=== PATIENT | male | born 1965 | race African-American/Black ===

== ENCOUNTER 2019-05-31 07:15 | Inpatient (IN) | payer MEDICAID ==
[~2019-05-31] VITALS: Ht 185.4 cm; Wt 107.7 kg
[~2019-05-31 07:15] MED LIST: LURA40 PO; LURA80 PO
[2019-06-01] MEDS ORDERED: LORazepam 1 MG TABLET PO PRN (01:15)
[2019-06-01] MEDS ORDERED: ZOLPIDEM TARTRATE 10 MG TABLET PO PRN (01:15)
[2019-06-01] MEDS ORDERED: HALOPERIDOL 5 MG TABLET PO PRN (01:15)
[2019-06-01] MEDS ORDERED: INFLUENZA VIRUS VACCINE QVS 2019-20 (3YR+)/PF 60 MCG/0.5 ML SYRINGE IM ONE (02:45)
[2019-06-01] MEDS ORDERED: -PHARMACY VACCINE NOTE- MISC ONE (02:45)
[2019-06-01 02:50] VITALS: BP 125/71
[2019-06-01 08:31] VITALS: BP 123/74
[2019-06-01] MEDS ORDERED: NICOTINE 14 MG/24 HOUR PATCH TD PRN (13:45)
[2019-06-01] MEDS ORDERED: LOPERAMIDE HCL 2 MG CAPSULE PO PRN (13:45)
[2019-06-01] MEDS ORDERED: MAGNESIUM HYDROXIDE SUSPENSION 30 ML UDCUP PO PRN (13:45)
[2019-06-01] MEDS ORDERED: MAG HYDROX/AL HYDROX/SIMETH ES 30 ML SUSPENSION UDCUP PO PRN (13:45)
[2019-06-01] MEDS ORDERED: ACETAMINOPHEN 325 MG TABLET PO PRN (13:45)
[2019-06-01] MEDS ORDERED: DOCUSATE SODIUM 100 MG CAPSULE PO PRN (13:45)
[2019-06-01] MEDS ORDERED: PETROLATUM,WHITE 28 GM JELLY TP PRN (13:45)
[2019-06-01] MEDS ORDERED: ALBUTEROL SULFATE HFA 90 MCG/PUFF 8 GM INHALER IH PRN (13:45)
[2019-06-01] MEDS ORDERED: CloNIDine HCL 0.1 MG TABLET PO PRN (13:45)
[2019-06-01] MEDS ORDERED: ONDANSETRON HCL 4 MG TABLET PO PRN (13:45)
[2019-06-01] MEDS ORDERED: GuaiFENesin/D-METHORPHAN [SUGAR-FREE] 200-20MG/10 ML SYRUP UDCUP PO PRN (13:45)
[2019-06-01] MEDS ORDERED: IBUPROFEN 400 MG TABLET PO PRN (13:45)
[2019-06-01 16:07] VITALS: BP 132/72
[2019-06-01] MEDS: LURASIDONE HCL 40 MG TABLET PO SCH (17:08)
[2019-06-02 00:38] VITALS: BP 128/72
[2019-06-02] MEDS: LURASIDONE HCL 40 MG TABLET PO SCH ×2 (06:32→16:33)
[2019-06-02 08:25] VITALS: BP 129/66
[2019-06-02 16:20] VITALS: BP 135/68
[2019-06-03 02:14] VITALS: BP 127/71
[2019-06-03] MEDS: LURASIDONE HCL 40 MG TABLET PO SCH ×2 (06:21→17:04)
[2019-06-03 07:03] LABS: BASOPHILS % (AUTO) 0.3 % (0.0-2.0); EOSINOPHILS % (AUTO) 1.1 % (1.0-6.0); HEMATOCRIT 39.8 % (41-53); HEMOGLOBIN 13.5 g/dL (13.5-17.5); LYMPHOCYTES # (AUTO) 1.1 K/uL (1.0-4.8); LYMPHOCYTES % (AUTO) 22.7 % (22.0-44.0); MEAN CORPUSCULAR HEMOGLOBIN 28.8 pg (26.0-34.0); MEAN CORPUSCULAR HGB CONC 33.9 G/dL (31.0-37.0); MEAN CORPUSCULAR VOLUME 85 fL (80-100); MONOCYTES # (AUTO) 0.5 K/uL (0.1-1.0); MONOCYTES % (AUTO) 11.1 % (2.0-9.0); NEUTROPHILS # (AUTO) 3.1 K/uL (1.8-7.7); NEUTROPHILS % (AUTO) 64.8 % (40.0-70.0); PLATELET COUNT (AUTO) 162 K/uL (150-450); RED CELL DISTRIBUTION WIDTH 14.9 % (11.5-14.5)
[2019-06-03 07:32] LABS: HEMOGLOBIN A1C 5.7 % (4.5-6.2)
[2019-06-03 07:41] LABS: ALANINE AMINOTRANSFERASE 33 U/L (12-78); ALBUMIN 3.2 g/dL (3.4-5.0); ALKALINE PHOSPHATASE 53 U/L (46-116); ANION GAP 3 mmol/L (8-16); ASPARTATE AMINOTRANSFERASE 16 U/L (15-37); BILIRUBIN,TOTAL 0.4 mg/dL (0.1-1.0); CALCIUM, TOTAL 8.4 mg/dL (8.8-10.5); CARBON DIOXIDE 32 mmol/L (22-29); CHLORIDE 107 mmol/L (98-107); CHOL/HDL RATIO 3.4 (4.2-7.3); CHOLESTEROL 151 mg/dL (131-200); CREATININE 1.06 mg/dL (0.60-1.30); FREE T4 (FREE THYROXINE) 0.85 ng/dL (0.76-1.46); GLOMERULAR FILTR. RATE CALC > 60 mL/min (>60); GLUCOSE,RANDOM 87 mg/dL (70-110); HDL CHOLESTEROL 45 mg/dL (40-60); LDL CHOL (CALC.) 95 mg/dL (0-130); SODIUM SERUM 142 mmol/L (136-145); THYROID STIMULATING HORMONE 1.27 uIU/mL (0.36-3.74); TOTAL PROTEIN, SERUM 6.1 g/dL (6.4-8.2); TRIGLYCERIDES 54 mg/dL (15-150); UREA NITROGEN, BLOOD 14 mg/dL (7-18)
[2019-06-03 08:16] VITALS: BP 119/63
[2019-06-03 16:08] VITALS: BP 133/77
[2019-06-04 02:11] VITALS: BP 124/69
[2019-06-04] MEDS: LURASIDONE HCL 40 MG TABLET PO SCH ×2 (06:52→16:24)
[2019-06-04 08:11] VITALS: BP 122/67
[2019-06-04] MEDS ORDERED: LURA40 PO (13:03)
[2019-06-04 16:04] VITALS: BP 113/62
== END 2019-06-04 21:23 | disposition home or self-care (01) | DRG 750 ==
LOC: B3A 06-01 00:45 → B2S 06-01 14:08
PROVIDERS: ADMIT Psychiatry & Neurology Psychiatry; ATTEND Psychiatry & Neurology Psychiatry
DX: F25.0 Schizoaffective disorder, bipolar type (principal); Z59.0 Homelessness; E55.9 Vitamin D deficiency, unspecified; F17.200 Nicotine dependence, unspecified, uncomplicated; F41.9 Anxiety disorder, unspecified; J44.9 Chronic obstructive pulmonary disease, unspecified; K59.00 Constipation, unspecified; Z91.19 Patient's noncompliance with other medical treatment and regimen; Z28.21 Immunization not carried out because of patient refusal
CPT/HCPCS: 83036; 84439; 84443; Q0162

== ENCOUNTER 2019-06-05 19:23 | Emergency (ER) | payer MEDICAID ==
[~2019-06-05] VITALS: Ht 195.6 cm; Wt 108.6 kg
[~2019-06-05 19:23] MED LIST changes: -LURA80 PO
[2019-06-05] MEDS ORDERED: LURASIDONE HCL 40 MG TABLET PO ONE (20:15)
[2019-06-05 20:51] VITALS: BP 152/85
== END 2019-06-05 21:08 | disposition home or self-care (01) ==
LOC: EMS 19:24
DX: F20.9 Schizophrenia, unspecified (principal); F19.90 Other psychoactive substance use, unspecified, uncomplicated; Z76.0 Encounter for issue of repeat prescription; Z59.0 Homelessness

== ENCOUNTER 2021-01-09 23:29 | Emergency (ER) | payer MEDICAID ==
[~2021-01-09] VITALS: Ht 185.4 cm; Wt 104.5 kg
[~2021-01-09 23:29] MED LIST changes: -LURA40 PO; +LURA40TA2 PO
[2021-01-10 01:19] LABS: BASOPHILS % (AUTO) 0.5 % (0.0-2.0); EOSINOPHILS % (AUTO) 0.8 % (1.0-6.0); HEMATOCRIT 39.6 % (41-53); HEMOGLOBIN 13.1 g/dL (13.5-17.5); LYMPHOCYTES # (AUTO) 1.3 K/uL (1.0-4.8); LYMPHOCYTES % (AUTO) 21.9 % (22.0-44.0); MEAN CORPUSCULAR HEMOGLOBIN 28.6 pg (26.0-34.0); MEAN CORPUSCULAR VOLUME 87 fL (80-100); MONOCYTES # (AUTO) 0.7 K/uL (0.1-1.0); MONOCYTES % (AUTO) 12.5 % (2.0-9.0); NEUTROPHILS # (AUTO) 3.7 K/uL (1.8-7.7); NEUTROPHILS % (AUTO) 64.3 % (40.0-70.0); PLATELET COUNT (AUTO) 176 K/uL (150-450); RED BLOOD CELL COUNT(AUTO) 4.57 MIL/uL (4.50-5.90)
[2021-01-10 01:27] LABS: ANION GAP 6 mmol/L (8-16); CARBON DIOXIDE 30 mmol/L (22-29); CHLORIDE 107 mmol/L (98-107); CREATININE 1.02 mg/dL (0.60-1.30); GLOMERULAR FILTR. RATE CALC > 60 mL/min (>60); GLUCOSE,RANDOM 97 mg/dL (70-110); POTASSIUM 3.7 mmol/L (3.5-5.1); SODIUM SERUM 143 mmol/L (136-145); UREA NITROGEN, BLOOD 11 mg/dL (7-18)
[2021-01-10 01:33] LABS: ALANINE AMINOTRANSFERASE 33 U/L (12-78); ALBUMIN 3.6 g/dL (3.4-5.0); ALKALINE PHOSPHATASE 75 U/L (46-116); ASPARTATE AMINOTRANSFERASE 29 U/L (15-37); BILIRUBIN,TOTAL 0.5 mg/dL (0.1-1.0); TOTAL PROTEIN, SERUM 6.9 g/dL (6.4-8.2)
[2021-01-10] MEDS ORDERED: LURASIDONE HCL 60 MG TABLET PO ONE (03:30)
[2021-01-10 03:56] VITALS: BP 140/80
== END 2021-01-10 03:57 | disposition home or self-care (01) ==
LOC: EMS 23:31
DX: F20.0 Paranoid schizophrenia (principal); F15.90 Other stimulant use, unspecified, uncomplicated; Z59.0 Homelessness
CPT/HCPCS: 36415; 80053; 85025; 99283; A9575; G0480

== ENCOUNTER 2021-01-11 07:07 | Emergency (ER) | payer MEDICAID ==
[~2021-01-11] VITALS: Ht 188 cm; Wt 100.0 kg
[2021-01-11] MEDS ORDERED: BISMUTH SUBSALICYLATE 524 MG/30 ML SUSPENSION UDCUP PO ONE (12:15)
[2021-01-11 13:30] VITALS: BP 133/76
== END 2021-01-11 14:04 | disposition home or self-care (01) ==
LOC: EMS 07:07
DX: F20.9 Schizophrenia, unspecified (principal); F15.10 Other stimulant abuse, uncomplicated; F17.210 Nicotine dependence, cigarettes, uncomplicated; Z59.0 Homelessness; Z91.018 Allergy to other foods
CPT/HCPCS: 99284; Z7502; Z7610

== ENCOUNTER 2021-10-03 13:37 | Emergency (ER) | payer MEDICAID ==
[~2021-10-03] VITALS: Ht 188 cm; Wt 99.7 kg
[2021-10-03] MEDS ORDERED: LIDOCAINE 5% TRANSDERMAL PATCH TD ONE (14:15)
[2021-10-03] MEDS ORDERED: ACETAMINOPHEN 500 MG TABLET PO ONE (14:15)
[2021-10-03 17:04] VITALS: BP 120/72
== END 2021-10-03 17:18 | disposition home or self-care (01) ==
LOC: EMS 13:40
DX: S29.012A Strain of muscle and tendon of back wall of thorax, initial encounter (principal); F15.90 Other stimulant use, unspecified, uncomplicated; F17.210 Nicotine dependence, cigarettes, uncomplicated; Z91.018 Allergy to other foods; Z79.899 Other long term (current) drug therapy; X50.9XXA Other and unspecified overexertion or strenuous movements or postures, initial encounter; Y93.89 Activity, other specified; Y92.89 Other specified places as the place of occurrence of the external cause; Y99.8 Other external cause status
CPT/HCPCS: 99283

== ENCOUNTER 2022-01-15 20:41 | Emergency (ER) | payer MEDICAID ==
[~2022-01-15] VITALS: Ht 188 cm; Wt 81.8 kg
[2022-01-15 21:06] VITALS: BP 132/58
[2022-01-15 22:44] LABS: BASOPHILS % (AUTO) 0.5 % (0.0-2.0); EOSINOPHILS % (AUTO) 1.5 % (1.0-6.0); HEMATOCRIT 36.6 % (41-53); HEMOGLOBIN 11.9 g/dL (13.5-17.5); LYMPHOCYTES # (AUTO) 1.2 K/uL (1.0-4.8); MEAN CORPUSCULAR HEMOGLOBIN 26.7 pg (26.0-34.0); MEAN CORPUSCULAR HGB CONC 32.7 G/dL (31.0-37.0); MEAN CORPUSCULAR VOLUME 82 fL (80-100); MONOCYTES # (AUTO) 0.6 K/uL (0.1-1.0); MONOCYTES % (AUTO) 12.4 % (2.0-9.0); NEUTROPHILS # (AUTO) 3.1 K/uL (1.8-7.7); NEUTROPHILS % (AUTO) 61.6 % (40.0-70.0); PLATELET COUNT (AUTO) 212 K/uL (150-450); RED BLOOD CELL COUNT(AUTO) 4.48 MIL/uL (4.50-5.90); RED CELL DISTRIBUTION WIDTH 16.2 % (11.5-14.5)
[2022-01-15 22:52] LABS: ANION GAP 7 mmol/L (8-16); CALCIUM, TOTAL 9.4 mg/dL (8.8-10.5); CARBON DIOXIDE 31 mmol/L (22-29); CHLORIDE 104 mmol/L (98-107); CREATININE 1.34 mg/dL (0.60-1.30); GLUCOSE,RANDOM 92 mg/dL (70-110); POTASSIUM 4.3 mmol/L (3.5-5.1); SODIUM SERUM 142 mmol/L (136-145); UREA NITROGEN, BLOOD 22 mg/dL (7-18)
[2022-01-15 22:53] LABS: GLOMERULAR FILTR. RATE CALC > 60 mL/min (>60)
[2022-01-15 22:58] LABS: ALANINE AMINOTRANSFERASE 26 U/L (12-78); ALBUMIN 3.4 g/dL (3.4-5.0); ALKALINE PHOSPHATASE 78 U/L (46-116); ASPARTATE AMINOTRANSFERASE 23 U/L (15-37); BILIRUBIN,TOTAL 0.4 mg/dL (0.1-1.0); TOTAL PROTEIN, SERUM 7.3 g/dL (6.4-8.2)
== END 2022-01-16 04:32 | disposition home or self-care (01) ==
LOC: EMS 20:59
DX: R60.0 Localized edema (principal); F20.0 Paranoid schizophrenia; F17.210 Nicotine dependence, cigarettes, uncomplicated; F15.90 Other stimulant use, unspecified, uncomplicated; Z59.00 Homelessness unspecified; Z98.890 Other specified postprocedural states; Z91.018 Allergy to other foods
CPT/HCPCS: 80053; 85025; 99284

== ENCOUNTER 2022-01-21 21:17 | Emergency (ER) | payer MEDICAID ==
[~2022-01-21] VITALS: Ht 190.5 cm; Wt 81.8 kg
[2022-01-21 21:19] VITALS: BP 118/58
[2022-01-22] MEDS ORDERED: CEPH-558 PO (02:25)
== END 2022-01-22 03:25 | disposition home or self-care (01) ==
LOC: EMS 21:20
DX: L03.115 Cellulitis of right lower limb (principal); F20.9 Schizophrenia, unspecified; F17.210 Nicotine dependence, cigarettes, uncomplicated; F15.90 Other stimulant use, unspecified, uncomplicated; Z98.890 Other specified postprocedural states; Z59.00 Homelessness unspecified; Z91.018 Allergy to other foods
CPT/HCPCS: 85379; 93971; 99284

== ENCOUNTER 2023-05-04 00:03 | Emergency (ER) | payer MEDICAID ==
[~2023-05-04] VITALS: Ht 188 cm; Wt 98.6 kg
[~2023-05-04 00:03] MED LIST changes: +CEPH-558 PO
[2023-05-04 00:34] VITALS: TEMP 98.6
[2023-05-04 00:39] LABS: BASOPHILS % (AUTO) 0.7 % (0.0-2.0); EOSINOPHILS % (AUTO) 1.7 % (1.0-6.0); HEMATOCRIT 35.6 % (41-53); HEMOGLOBIN 11.6 g/dL (13.5-17.5); LYMPHOCYTES # (AUTO) 1.7 K/uL (1.0-4.8); LYMPHOCYTES % (AUTO) 31.4 % (22.0-44.0); MEAN CORPUSCULAR HEMOGLOBIN 27.4 pg (26.0-34.0); MEAN CORPUSCULAR HGB CONC 32.7 G/dL (31.0-37.0); MEAN CORPUSCULAR VOLUME 84 fL (80-100); MONOCYTES # (AUTO) 0.9 K/uL (0.1-1.0); MONOCYTES % (AUTO) 15.8 % (2.0-9.0); NEUTROPHILS # (AUTO) 2.8 K/uL (1.8-7.7); NEUTROPHILS % (AUTO) 50.4 % (40.0-70.0); PLATELET COUNT (AUTO) 235 K/uL (150-450); RED BLOOD CELL COUNT(AUTO) 4.25 MIL/uL (4.50-5.90); RED CELL DISTRIBUTION WIDTH 15.2 % (11.5-14.5); WHITE BLOOD COUNT (AUTO) 5.5 K/uL (4.5-11.0)
[2023-05-04 00:49] LABS: ANION GAP 6 mmol/L (8-16); CALCIUM, TOTAL 9.4 mg/dL (8.8-10.5); CARBON DIOXIDE 28 mmol/L (22-29); CHLORIDE 106 mmol/L (98-107); CREATININE 1.08 mg/dL (0.60-1.30); GLOMERULAR FILTR. RATE CALC > 60 mL/min (>60); GLUCOSE,RANDOM 109 mg/dL (70-110); POTASSIUM 4.8 mmol/L (3.5-5.1); SODIUM SERUM 140 mmol/L (136-145); UREA NITROGEN, BLOOD 29 mg/dL (7-18)
[2023-05-04 00:54] LABS: PROTHROMBIN TIME 10.4 SEC (9.4-11.6)
[2023-05-04 00:57] LABS: TROPONIN I-HIGH SENSITIVITY 12 ng/L (<76)
[2023-05-04 00:59] LABS: ALANINE AMINOTRANSFERASE 19 U/L (12-78); ALBUMIN 2.9 g/dL (3.4-5.0); ALKALINE PHOSPHATASE 96 U/L (46-116); ASPARTATE AMINOTRANSFERASE 14 U/L (15-37); BILIRUBIN,TOTAL 0.2 mg/dL (0.1-1.0); CREATINE KINASE, TOTAL ONLY 109 U/L (39-308); TOTAL PROTEIN, SERUM 6.9 g/dL (6.4-8.2)
[2023-05-04 01:02] LABS: B-TYPE NATRIURETIC PEPTIDE 20 pg/mL (0-100)
[2023-05-04 03:25] LABS: APPEARANCE,URINE CLEAR (CLEAR); BILIRUBIN,URINE NEGATIVE (NEGATIVE); COLOR,URINE COLORLESS (YELLOW); GLUCOSE, URINE (UA) NEGATIVE (NEGATIVE); KETONES,URINE NEGATIVE (NEGATIVE); LEUKOCYTE ESTERASE ,URINE NEGATIVE (NEGATIVE); NITRATE,URINE NEGATIVE (NEGATIVE); OCCULT BLOOD,URINE NEGATIVE (NEGATIVE); PROTEIN,URINE NEGATIVE (NEGATIVE); SPECIFIC GRAVITIY, URINE 1.013 (1.003-1.030); UROBILINOGEN,URINE <=1.0 mg/dL (<=1.0)
[2023-05-04] MEDS ORDERED: CLINDAMYCIN 600 MG/D5% WATER 50 ML IV ONE (03:30)
[2023-05-04 03:50] LABS: ALCOHOL, URINE DRUG SCREEN NEGATIVE (NEGATIVE); AMPHET/METH SCREEN,URINE NEGATIVE (NEGATIVE); BARBITURATE SCREEN, URINE NEGATIVE (NEGATIVE); BENZODIAZEPINES SCREEN,URINE NEGATIVE (NEGATIVE); CANNABINOID SCREEN,URINE NEGATIVE (NEGATIVE); COCAINE SCREEN,URINE NEGATIVE (NEGATIVE); METHADONE SCREEN, URINE NEGATIVE (NEGATIVE); OPIATE SCREEN,URINE NEGATIVE (NEGATIVE); PHENCYCLIDINE SCREEN,URINE NEGATIVE (NEGATIVE)
[2023-05-04] MEDS ORDERED: CLIN-142 PO (03:56)
[2023-05-04 04:06] VITALS: BP 103/69; PULSE 73; RESP 22
== END 2023-05-04 04:06 | disposition short-term general hospital (02) ==
LOC: EMS 00:04
DX: L03.115 Cellulitis of right lower limb (principal); F20.9 Schizophrenia, unspecified; F17.210 Nicotine dependence, cigarettes, uncomplicated; F15.90 Other stimulant use, unspecified, uncomplicated; Z59.00 Homelessness unspecified
CPT/HCPCS: 99285; 93970; 96365; 71045; 80053; 81003; 82550; 83605; 83880; 84484; 85025; 85610; 85730; 87040; 36415; 93005; 80307; J3490

== ENCOUNTER 2023-05-13 10:38 | Emergency (ER) | payer MEDICAID ==
[~2023-05-13] VITALS: Ht 188 cm; Wt 98.6 kg
[~2023-05-13 10:38] MED LIST changes: +CLIN-142 PO
[2023-05-13 10:58] VITALS: TEMP 98
[2023-05-13 12:22] LABS: BASOPHILS % (AUTO) 0.9 % (0.0-2.0); EOSINOPHILS % (AUTO) 2.5 % (1.0-6.0); LYMPHOCYTES # (AUTO) 1.8 K/uL (1.0-4.8); LYMPHOCYTES % (AUTO) 34.1 % (22.0-44.0); MEAN CORPUSCULAR HEMOGLOBIN 27.7 pg (26.0-34.0); MEAN CORPUSCULAR HGB CONC 33.3 G/dL (31.0-37.0); MEAN CORPUSCULAR VOLUME 83 fL (80-100); MONOCYTES # (AUTO) 0.6 K/uL (0.1-1.0); MONOCYTES % (AUTO) 12.1 % (2.0-9.0); NEUTROPHILS # (AUTO) 2.7 K/uL (1.8-7.7); NEUTROPHILS % (AUTO) 50.4 % (40.0-70.0); PLATELET COUNT (AUTO) 221 K/uL (150-450); RED BLOOD CELL COUNT(AUTO) 4.68 MIL/uL (4.50-5.90); RED CELL DISTRIBUTION WIDTH 14.9 % (11.5-14.5); WHITE BLOOD COUNT (AUTO) 5.3 K/uL (4.5-11.0)
[2023-05-13 12:34] LABS: ANION GAP 7 mmol/L (8-16); CALCIUM, TOTAL 8.8 mg/dL (8.8-10.5); CARBON DIOXIDE 30 mmol/L (22-29); CHLORIDE 102 mmol/L (98-107); CREATININE 1.19 mg/dL (0.60-1.30); GLOMERULAR FILTR. RATE CALC > 60 mL/min (>60); GLUCOSE,RANDOM 123 mg/dL (70-110); POTASSIUM 4.6 mmol/L (3.5-5.1); SODIUM SERUM 139 mmol/L (136-145); UREA NITROGEN, BLOOD 18 mg/dL (7-18)
[2023-05-13 12:35] LABS: ALCOHOL, BLOOD (SERUM) < 3 mg/dL (0-10)
[2023-05-13 12:40] LABS: ALANINE AMINOTRANSFERASE 21 U/L (12-78); ALBUMIN 3.4 g/dL (3.4-5.0); ALKALINE PHOSPHATASE 81 U/L (46-116); ASPARTATE AMINOTRANSFERASE 23 U/L (15-37); BILIRUBIN,TOTAL 0.5 mg/dL (0.1-1.0); TOTAL PROTEIN, SERUM 7.5 g/dL (6.4-8.2)
[2023-05-13 12:42] LABS: TROPONIN I-HIGH SENSITIVITY 5 ng/L (<76)
[2023-05-13 13:00] LABS: COVID AG,FIA SOURCE NASAL SWAB
[2023-05-13 13:28] VITALS: BP 131/82; PULSE 64; RESP 16
[2023-05-13 13:47] LABS: SARS-COV2 (COVID) ANTIGEN,FIA Negative (Negative)
[2023-05-13] MEDS ORDERED: LURA60TA PO (19:27)
== END 2023-05-13 14:29 | disposition home or self-care (01) ==
LOC: EMS 10:38
DX: I87.2 Venous insufficiency (chronic) (peripheral) (principal); F20.0 Paranoid schizophrenia; F15.10 Other stimulant abuse, uncomplicated; F17.210 Nicotine dependence, cigarettes, uncomplicated; Z59.00 Homelessness unspecified; Z98.890 Other specified postprocedural states; Z20.822 Contact with and (suspected) exposure to COVID-19; Z91.018 Allergy to other foods
CPT/HCPCS: 99283; 87426; 80053; 84484; 85025; 36415; G0480

== ENCOUNTER 2023-06-04 00:19 | Emergency (ER) | payer MEDICAID ==
[~2023-06-04] VITALS: Ht 185.4 cm; Wt 95.0 kg
[~2023-06-04 00:19] MED LIST changes: -CEPH-558 PO; -CLIN-142 PO; +CLIN300C58 PO; +ESCI-8 PO; -LURA40TA2 PO
[2023-06-04 01:56] LABS: BASOPHILS % (AUTO) 0.5 % (0.0-2.0); EOSINOPHILS % (AUTO) 1.4 % (1.0-6.0); HEMATOCRIT 37.8 % (41-53); HEMOGLOBIN 12.8 g/dL (13.5-17.5); LYMPHOCYTES # (AUTO) 1.7 K/uL (1.0-4.8); LYMPHOCYTES % (AUTO) 30.9 % (22.0-44.0); MEAN CORPUSCULAR HGB CONC 33.7 G/dL (31.0-37.0); MEAN CORPUSCULAR VOLUME 83 fL (80-100); MONOCYTES # (AUTO) 0.7 K/uL (0.1-1.0); MONOCYTES % (AUTO) 11.9 % (2.0-9.0); NEUTROPHILS # (AUTO) 3.1 K/uL (1.8-7.7); NEUTROPHILS % (AUTO) 55.3 % (40.0-70.0); PLATELET COUNT (AUTO) 216 K/uL (150-450); RED BLOOD CELL COUNT(AUTO) 4.56 MIL/uL (4.50-5.90); RED CELL DISTRIBUTION WIDTH 16.2 % (11.5-14.5); WHITE BLOOD COUNT (AUTO) 5.6 K/uL (4.5-11.0)
[2023-06-04] MEDS ORDERED: LIDOCAINE/PF 1% 2 ML VIAL IM ONE (02:00)
[2023-06-04] MEDS ORDERED: SULFAMETHOX/TRIMETH DS 800-160 MG/TABLET PO ONE (02:00)
[2023-06-04] MEDS ORDERED: CefTRIAXone SODIUM 1 GM/VIAL IM ONE (02:00)
[2023-06-04 02:01] LABS: ANION GAP 6 mmol/L (8-16); CARBON DIOXIDE 31 mmol/L (22-29); CHLORIDE 102 mmol/L (98-107); CREATININE 1.09 mg/dL (0.60-1.30); GLOMERULAR FILTR. RATE CALC > 60 mL/min (>60); GLUCOSE,RANDOM 105 mg/dL (70-110); POTASSIUM 3.8 mmol/L (3.5-5.1); SODIUM SERUM 139 mmol/L (136-145); UREA NITROGEN, BLOOD 15 mg/dL (7-18)
[2023-06-04 02:02] LABS: CALCIUM, TOTAL 9.2 mg/dL (8.8-10.5)
[2023-06-04 02:08] LABS: ALANINE AMINOTRANSFERASE 32 U/L (12-78); ALBUMIN 3.7 g/dL (3.4-5.0); ALKALINE PHOSPHATASE 75 U/L (46-116); ASPARTATE AMINOTRANSFERASE 26 U/L (15-37); BILIRUBIN,TOTAL 0.8 mg/dL (0.1-1.0); TOTAL PROTEIN, SERUM 7.8 g/dL (6.4-8.2)
[2023-06-04 02:19] VITALS: BP 134/82; PULSE 78; RESP 20; TEMP 97.8
== END 2023-06-04 06:10 | disposition home or self-care (01) ==
LOC: EMS 00:20
DX: L03.115 Cellulitis of right lower limb (principal); I87.2 Venous insufficiency (chronic) (peripheral); F20.9 Schizophrenia, unspecified; F17.210 Nicotine dependence, cigarettes, uncomplicated; F15.90 Other stimulant use, unspecified, uncomplicated; Z59.00 Homelessness unspecified; Z98.890 Other specified postprocedural states; Z91.018 Allergy to other foods
CPT/HCPCS: 99283; 80053; 85025; 36415; 96372; J0696; J3490

== ENCOUNTER 2024-11-29 17:47 | Emergency (ER) | payer MEDICAID ==
[~2024-11-29] VITALS: Ht 190.5 cm; Wt 108.6 kg
[~2024-11-29 17:47] MED LIST changes: -CLIN300C58 PO; -ESCI-8 PO; +LEVO-72 PO
[2024-11-29 18:02] VITALS: BP 153/65; PULSE 91; RESP 18; TEMP 97.9; O2SAT 100
[2024-11-29] MEDS ORDERED: ATOR40TA71 PO (18:03)
[2024-11-29] MEDS ORDERED: LURA120T2 PO (18:03)
[2024-11-29 18:06] LABS: COVID AG,FIA SOURCE NASAL SWAB
[2024-11-29 18:25] LABS: SARS-COV2 (COVID) ANTIGEN,FIA Negative (Negative)
[2024-11-29 18:32] LABS: INFLUENZA TYPE A NEGATIVE FOR TYPE A (NEGATIVE); INFLUENZA TYPE B NEGATIVE FOR TYPE B (NEGATIVE)
== END 2024-11-29 19:12 | disposition home or self-care (01) ==
LOC: EMS 18:05
DX: Z00.00 Encounter for general adult medical examination without abnormal findings (principal); F17.210 Nicotine dependence, cigarettes, uncomplicated; Z91.010 Allergy to peanuts; Z59.00 Homelessness unspecified; Z79.899 Other long term (current) drug therapy; Z20.822 Contact with and (suspected) exposure to COVID-19
CPT/HCPCS: 87804; 99283

== ENCOUNTER 2024-11-30 20:19 | Emergency (ER) | payer MEDICAID ==
[~2024-11-30] VITALS: Ht 188 cm; Wt 108.0 kg
[~2024-11-30 20:19] MED LIST changes: +ATOR40TA71 PO; +LURA120T2 PO
[2024-11-30 20:30] VITALS: BP 138/72; PULSE 78; RESP 18; TEMP 98; O2SAT 98
[2024-12-02] MEDS ORDERED: GUAI100L96 PO (18:25)
== END 2024-12-01 02:16 | disposition home or self-care (01) ==
LOC: EMS 20:19
DX: Z00.00 Encounter for general adult medical examination without abnormal findings (principal); Z59.00 Homelessness unspecified; Z91.010 Allergy to peanuts; Z79.899 Other long term (current) drug therapy
CPT/HCPCS: 99281; Z7502

== ENCOUNTER 2024-12-02 16:01 | Emergency (ER) | payer MEDICAID ==
[~2024-12-02] VITALS: Ht 190.5 cm; Wt 116.4 kg
[~2024-12-02 16:01] MED LIST changes: -LEVO-72 PO
[2024-12-02 16:04] VITALS: TEMP 99
[2024-12-02] MEDS: ACETAMINOPHEN 500 MG TABLET PO ONE (17:21)
[2024-12-02] MEDS: IBUPROFEN 400 MG TABLET PO ONE (17:21)
[2024-12-02 18:20] VITALS: BP 116/61; PULSE 87; RESP 16; O2SAT 95
[2024-12-02] MEDS ORDERED: GUAI100L96 PO (18:25)
== END 2024-12-02 20:15 | disposition home or self-care (01) ==
LOC: EMS 16:01
DX: M79.605 Pain in left leg (principal); M79.604 Pain in right leg; G89.29 Other chronic pain; Z71.6 Tobacco abuse counseling; F17.210 Nicotine dependence, cigarettes, uncomplicated; Z59.00 Homelessness unspecified; Z72.89 Other problems related to lifestyle; Z79.899 Other long term (current) drug therapy; Z98.890 Other specified postprocedural states; Z91.018 Allergy to other foods
CPT/HCPCS: 99283; 99406

== ENCOUNTER 2024-12-09 18:47 | Emergency (ER) | payer MEDICAID ==
[~2024-12-09] VITALS: Ht 190.5 cm; Wt 108.6 kg
[~2024-12-09 18:47] MED LIST changes: +GUAI100L96 PO
[2024-12-09 19:01] VITALS: TEMP 98.4
[2024-12-09 21:17] VITALS: BP 113/75; PULSE 77; RESP 18; O2SAT 96
[2024-12-09] MEDS ORDERED: LURA40TA2 PO (21:47)
[2024-12-10] MEDS ORDERED: AZIT250T9 PO (13:58)
== END 2024-12-09 22:02 | disposition home or self-care (01) ==
LOC: EMS 18:52
DX: R60.0 Localized edema (principal); F20.0 Paranoid schizophrenia; F17.210 Nicotine dependence, cigarettes, uncomplicated; Z98.890 Other specified postprocedural states; Z59.00 Homelessness unspecified; Z79.899 Other long term (current) drug therapy
CPT/HCPCS: 99283; Z7502

== ENCOUNTER 2024-12-14 20:42 | Emergency (ER) | payer MEDICAID ==
[~2024-12-14] VITALS: Ht 190.5 cm; Wt 120.0 kg
[~2024-12-14 20:42] MED LIST changes: +AZIT250T9 PO; +LURA40TA2 PO
[2024-12-14 20:55] VITALS: BP 155/74; PULSE 85; RESP 18; TEMP 98.2; O2SAT 97
== END 2024-12-15 | disposition home or self-care (01) ==
LOC: EMS 20:42
DX: F20.9 Schizophrenia, unspecified (principal); Z59.00 Homelessness unspecified; F17.210 Nicotine dependence, cigarettes, uncomplicated; Z91.010 Allergy to peanuts; Z79.899 Other long term (current) drug therapy
CPT/HCPCS: 99281; Z7502

== ENCOUNTER 2024-12-17 20:50 | Emergency (ER) | payer MEDICAID ==
[~2024-12-17] VITALS: Ht 190.5 cm; Wt 120.9 kg
[~2024-12-17 20:50] MED LIST changes: -AZIT250T9 PO
[2024-12-17 20:57] VITALS: TEMP 98.1
[2024-12-18 02:32] LABS: BASOPHILS % (AUTO) 0.5 % (0.0-2.0); HEMATOCRIT 36.1 % (41-53); LYMPHOCYTES # (AUTO) 0.9 K/uL (1.0-4.8); LYMPHOCYTES % (AUTO) 20.8 % (22.0-44.0); MEAN CORPUSCULAR HEMOGLOBIN 27.6 pg (26.0-34.0); MEAN CORPUSCULAR HGB CONC 33.1 G/dL (31.0-37.0); MEAN CORPUSCULAR VOLUME 83 fL (80-100); MONOCYTES # (AUTO) 0.6 K/uL (0.1-1.0); MONOCYTES % (AUTO) 13.9 % (2.0-9.0); NEUTROPHILS # (AUTO) 2.7 K/uL (1.8-7.7); NEUTROPHILS % (AUTO) 62.8 % (40.0-70.0); PLATELET COUNT (AUTO) 184 K/uL (150-450); RED BLOOD CELL COUNT(AUTO) 4.33 MIL/uL (4.50-5.90); RED CELL DISTRIBUTION WIDTH 16.1 % (11.5-14.5); WHITE BLOOD COUNT (AUTO) 4.3 K/uL (4.5-11.0)
[2024-12-18 02:46] LABS: ANION GAP 7 mmol/L (8-16); CALCIUM, TOTAL 8.8 mg/dL (8.8-10.5); CARBON DIOXIDE 32 mmol/L (22-29); CHLORIDE 103 mmol/L (98-107); CREATININE 1.12 mg/dL (0.60-1.30); GLOMERULAR FILTR. RATE CALC > 60 mL/min (>60); GLUCOSE,RANDOM 137 mg/dL (70-110); POTASSIUM 4.1 mmol/L (3.5-5.1); SODIUM SERUM 142 mmol/L (136-145); UREA NITROGEN, BLOOD 18 mg/dL (7-18)
[2024-12-18 07:30] VITALS: BP 116/58; PULSE 75; RESP 15; O2SAT 98
== END 2024-12-18 09:50 | disposition home or self-care (01) ==
LOC: EMS 20:50
DX: D64.9 Anemia, unspecified (principal); G89.29 Other chronic pain; F17.290 Nicotine dependence, other tobacco product, uncomplicated; Z59.811 Housing instability, housed, with risk of homelessness; Z59.00 Homelessness unspecified; Z98.890 Other specified postprocedural states; Z79.899 Other long term (current) drug therapy; Z91.010 Allergy to peanuts; Z91.018 Allergy to other foods
CPT/HCPCS: 80048; 85025; 99283

== ENCOUNTER 2024-12-22 21:16 | Emergency (ER) | payer MEDICAID ==
[~2024-12-22] VITALS: Ht 190.5 cm; Wt 56.8 kg
[2024-12-22 21:18] VITALS: BP 130/32; PULSE 93; RESP 16; TEMP 98.3; O2SAT 95
== END 2024-12-23 04:48 | disposition left against medical advice (07) ==
LOC: EMS 21:16
DX: M79.604 Pain in right leg (principal); M79.605 Pain in left leg; Z53.21 Procedure and treatment not carried out due to patient leaving prior to being seen by health care provider
CPT/HCPCS: 99281; Z7502

== ENCOUNTER → 2024-12-24 | Emergency (ER) | payer MEDICAID ==
[~2024-12-24] VITALS: Ht 190.5 cm; Wt 113.0 kg
[2024-12-24 18:06] VITALS: BP 140/78; PULSE 84; RESP 18; TEMP 97.6; O2SAT 96
== END | disposition still patient (30) ==
LOC: EMS 17:10
DX: Z00.00 Encounter for general adult medical examination without abnormal findings (principal); Z53.21 Procedure and treatment not carried out due to patient leaving prior to being seen by health care provider
CPT/HCPCS: 99281; Z7502

== ENCOUNTER → 2024-12-25 | Emergency (ER) | payer MEDICAID ==
[~2024-12-25] VITALS: Ht 190.5 cm; Wt 118.1 kg
[2024-12-25 08:11] VITALS: BP 141/68; PULSE 70; RESP 18; TEMP 96.9; O2SAT 96
== END | disposition still patient (30) ==
LOC: EMS 08:06
DX: J06.9 Acute upper respiratory infection, unspecified (principal); G89.29 Other chronic pain; F17.210 Nicotine dependence, cigarettes, uncomplicated; Z98.890 Other specified postprocedural states; Z59.00 Homelessness unspecified; Z79.899 Other long term (current) drug therapy; Z91.010 Allergy to peanuts; Z91.018 Allergy to other foods
CPT/HCPCS: 99282; Z7502

== ENCOUNTER 2025-03-19 07:08 | Emergency (ER) | payer MEDICAID ==
[~2025-03-19] VITALS: Ht 190.5 cm; Wt 126.5 kg
[2025-03-19 07:09] VITALS: BP 132/78; PULSE 80; RESP 18; TEMP 97.3; O2SAT 97
[2025-03-19] MEDS: POVIDONE-IODINE 10% 15 ML SOLUTION UD TP ONE (08:03)
== END 2025-03-19 08:48 | disposition home or self-care (01) ==
LOC: EMS 07:13
DX: S91.205A Unspecified open wound of left lesser toe(s) with damage to nail, initial encounter (principal); S91.204A Unspecified open wound of right lesser toe(s) with damage to nail, initial encounter; F17.210 Nicotine dependence, cigarettes, uncomplicated; G89.29 Other chronic pain; Z59.00 Homelessness unspecified; Z91.018 Allergy to other foods; X58.XXXA Exposure to other specified factors, initial encounter; Y93.89 Activity, other specified; Y92.89 Other specified places as the place of occurrence of the external cause; Y99.8 Other external cause status
CPT/HCPCS: 99282; A4247

== ENCOUNTER 2025-03-19 14:54 | Emergency (ER) | payer MEDICAID ==
[~2025-03-19] VITALS: Ht 190.5 cm; Wt 126.5 kg
[2025-03-19 15:31] VITALS: BP 112/76; PULSE 76; RESP 18; TEMP 98.2; O2SAT 98
== END 2025-03-19 18:19 | disposition home or self-care (01) ==
LOC: EMS 14:54
DX: S91.204A Unspecified open wound of right lesser toe(s) with damage to nail, initial encounter (principal); F17.210 Nicotine dependence, cigarettes, uncomplicated; Z98.890 Other specified postprocedural states; G89.29 Other chronic pain; Z59.00 Homelessness unspecified; Z91.018 Allergy to other foods; X58.XXXA Exposure to other specified factors, initial encounter; Y93.89 Activity, other specified; Y92.89 Other specified places as the place of occurrence of the external cause; Y99.8 Other external cause status
CPT/HCPCS: 99282; Z7502

== ENCOUNTER 2025-03-21 08:32 | Emergency (ER) | payer MEDICAID ==
[~2025-03-21] VITALS: Ht 190.5 cm; Wt 126.5 kg
[2025-03-21 08:58] VITALS: BP 130/74; PULSE 77; RESP 18; TEMP 98.2; O2SAT 97
== END 2025-03-21 12:04 | disposition home or self-care (01) ==
LOC: EMS 08:35
DX: I87.2 Venous insufficiency (chronic) (peripheral) (principal); F20.9 Schizophrenia, unspecified; F17.210 Nicotine dependence, cigarettes, uncomplicated; Z91.018 Allergy to other foods; Z59.00 Homelessness unspecified
CPT/HCPCS: 99282; Z7502

== ENCOUNTER 2025-04-07 08:14 | Emergency (ER) | payer MEDICAID ==
[~2025-04-07] VITALS: Ht 190.5 cm; Wt 124.0 kg
[~2025-04-07 08:14] MED LIST changes: -ATOR40TA71 PO; -GUAI100L96 PO; -LURA120T2 PO; -LURA40TA2 PO; +[UNRECOGNIZED DRUG - CODE] TP
[2025-04-07 08:25] VITALS: TEMP 98.1
[2025-04-07] MEDS: FUROSEMIDE 20 MG TABLET PO ONE (12:51)
[2025-04-07] MEDS: KETOROLAC TROMETHAMINE 60 MG/2 ML VIAL IM ONE (12:52)
[2025-04-07 13:05] VITALS: BP 149/67; PULSE 81; RESP 18; O2SAT 94
== END 2025-04-07 16:21 | disposition home or self-care (01) ==
LOC: EMS 08:14
DX: R60.0 Localized edema (principal); G89.29 Other chronic pain; F17.210 Nicotine dependence, cigarettes, uncomplicated; Z59.00 Homelessness unspecified; Z91.018 Allergy to other foods; Z98.890 Other specified postprocedural states; Z79.899 Other long term (current) drug therapy
CPT/HCPCS: 99283; 96372; J1885

== ENCOUNTER 2025-04-10 06:32 | Emergency (ER) | payer MEDICAID ==
[~2025-04-10] VITALS: Ht 190.5 cm; Wt 122.7 kg
[2025-04-10 06:44] VITALS: BP 129/76; PULSE 74; RESP 16; TEMP 98.4; O2SAT 99
== END 2025-04-10 07:33 | disposition home or self-care (01) ==
LOC: EMS 06:34
DX: R60.0 Localized edema (principal); F20.9 Schizophrenia, unspecified; G89.29 Other chronic pain; F17.210 Nicotine dependence, cigarettes, uncomplicated; Z98.890 Other specified postprocedural states; Z79.899 Other long term (current) drug therapy; Z59.02 Unsheltered homelessness; Z91.018 Allergy to other foods
CPT/HCPCS: 99283

== ENCOUNTER 2025-04-11 06:25 | Emergency (ER) | payer MEDICAID ==
[~2025-04-11] VITALS: Ht 189.2 cm; Wt 123.2 kg
[2025-04-11 06:33] VITALS: BP 114/64; PULSE 79; RESP 14; TEMP 98.1; O2SAT 94
[2025-04-11] MEDS: POTASSIUM CHLORIDE 20 MEQ ER TABLET PO ONE (07:16)
[2025-04-12] MEDS ORDERED: POTA8TAB71 PO (07:41)
[2025-04-12] MEDS ORDERED: HYDR25TA2 PO (07:41)
== END 2025-04-11 07:27 | disposition home or self-care (01) ==
LOC: EMS 06:28
DX: R60.0 Localized edema (principal); F20.9 Schizophrenia, unspecified; F17.210 Nicotine dependence, cigarettes, uncomplicated; G89.29 Other chronic pain; Z59.00 Homelessness unspecified; Z98.890 Other specified postprocedural states; Z79.899 Other long term (current) drug therapy; Z91.010 Allergy to peanuts
CPT/HCPCS: 99283

== ENCOUNTER 2025-04-12 07:30 | Emergency (ER) | payer MEDICAID ==
[~2025-04-12] VITALS: Ht 188 cm; Wt 100.0 kg
[2025-04-12] MEDS ORDERED: HYDR25TA2 PO (07:41)
[2025-04-12] MEDS ORDERED: POTA8TAB71 PO (07:41)
[2025-04-12 07:46] VITALS: BP 127/77; PULSE 84; RESP 18; TEMP 97.9; O2SAT 99
== END 2025-04-12 08:00 | disposition home or self-care (01) ==
LOC: EMS 07:30
DX: M79.89 Other specified soft tissue disorders (principal); F20.9 Schizophrenia, unspecified; F17.210 Nicotine dependence, cigarettes, uncomplicated; G89.29 Other chronic pain; Z59.00 Homelessness unspecified; Z76.5 Malingerer [conscious simulation]; Z98.890 Other specified postprocedural states; Z79.899 Other long term (current) drug therapy; Z91.010 Allergy to peanuts
CPT/HCPCS: 99283; Z7502

== ENCOUNTER 2025-04-15 07:31 | Emergency (ER) | payer MEDICAID ==
[~2025-04-15] VITALS: Ht 189.2 cm; Wt 113.6 kg
[~2025-04-15 07:31] MED LIST changes: +HYDR25TA2 PO; +POTA8TAB71 PO
[2025-04-15 07:37] VITALS: BP 139/66; PULSE 80; RESP 18; TEMP 98; O2SAT 95
== END 2025-04-15 09:14 | disposition left against medical advice (07) ==
LOC: EMS 07:31
DX: M79.606 Pain in leg, unspecified (principal); G89.29 Other chronic pain; Z53.21 Procedure and treatment not carried out due to patient leaving prior to being seen by health care provider
CPT/HCPCS: 99281; Z7502

== ENCOUNTER 2025-04-16 08:12 | Emergency (ER) | payer MEDICAID ==
[~2025-04-16] VITALS: Ht 190.5 cm; Wt 113.6 kg
[2025-04-16 08:29] VITALS: BP 119/63; PULSE 77; RESP 18; TEMP 98.2; O2SAT 95
== END 2025-04-16 09:59 | disposition home or self-care (01) ==
LOC: EMS 08:14
DX: G89.29 Other chronic pain (principal); M79.671 Pain in right foot; M79.672 Pain in left foot; F17.210 Nicotine dependence, cigarettes, uncomplicated; Z98.890 Other specified postprocedural states; Z59.00 Homelessness unspecified; Z79.899 Other long term (current) drug therapy; Z91.018 Allergy to other foods
CPT/HCPCS: 99282; Z7502

== ENCOUNTER 2025-04-21 07:10 | Emergency (ER) | payer MEDICAID ==
[~2025-04-21] VITALS: Ht 188 cm; Wt 113.6 kg
[2025-04-21 07:20] VITALS: BP 129/78; PULSE 77; RESP 18; TEMP 97.9; O2SAT 98
[2025-04-21] MEDS: CEPHALEXIN MONOHYDRATE 500 MG CAPSULE PO ONE (08:18)
[2025-04-21] MEDS: SULFAMETHOX/TRIMETH DS 800-160 MG/TABLET PO ONE (08:19)
== END 2025-04-21 08:27 | disposition home or self-care (01) ==
LOC: EMS 07:10
DX: L03.116 Cellulitis of left lower limb (principal); L03.115 Cellulitis of right lower limb; M79.671 Pain in right foot; M79.672 Pain in left foot; G89.29 Other chronic pain; F17.210 Nicotine dependence, cigarettes, uncomplicated; Z98.890 Other specified postprocedural states; Z59.00 Homelessness unspecified; Z79.899 Other long term (current) drug therapy; Z91.018 Allergy to other foods
CPT/HCPCS: 99283

== ENCOUNTER 2025-04-22 08:11 | Emergency (ER) | payer MEDICAID ==
[~2025-04-22] VITALS: Ht 188 cm; Wt 104.5 kg
[2025-04-22 08:13] VITALS: BP 153/71; PULSE 88; RESP 18; TEMP 98.4; O2SAT 98
== END 2025-04-22 08:35 | disposition home or self-care (01) ==
LOC: EMS 08:11
DX: F20.0 Paranoid schizophrenia (principal); M79.673 Pain in unspecified foot; G89.29 Other chronic pain; F17.210 Nicotine dependence, cigarettes, uncomplicated; Z76.5 Malingerer [conscious simulation]; Z59.00 Homelessness unspecified; Z79.899 Other long term (current) drug therapy; Z91.018 Allergy to other foods; Z98.890 Other specified postprocedural states
CPT/HCPCS: 99282; Z7502

== ENCOUNTER 2025-05-03 07:57 | Emergency (ER) | payer MEDICAID ==
[~2025-05-03] VITALS: Ht 193 cm; Wt 106.8 kg
[2025-05-03 08:13] VITALS: BP 132/71; PULSE 83; RESP 18; TEMP 97.9; O2SAT 94
== END 2025-05-03 09:58 | disposition left against medical advice (07) ==
LOC: EMS 07:57
DX: H57.89 Other specified disorders of eye and adnexa (principal); Z53.21 Procedure and treatment not carried out due to patient leaving prior to being seen by health care provider
CPT/HCPCS: 99281; Z7502

== ENCOUNTER 2025-06-04 05:37 | Emergency (ER) | payer MEDICAID ==
[~2025-06-04] VITALS: Ht 188 cm; Wt 120.5 kg
[~2025-06-04 05:37] MED LIST changes: +CEPH-558 PO; +ESCI-8 PO; -HYDR25TA2 PO; +LURA60TA PO; -POTA8TAB71 PO; -[UNRECOGNIZED DRUG - CODE] TP
[2025-06-04 05:40] VITALS: TEMP 97.9; O2SAT 100
[2025-06-04] MEDS: ACETAMINOPHEN 500 MG TABLET PO ONE (06:53)
[2025-06-04 07:24] VITALS: BP 143/78; PULSE 71; RESP 17
[2025-06-04] MEDS: OXYMETAZOLINE HCL 0.05% 15 ML NASAL SPRAY NASAL ONE (08:06)
== END 2025-06-04 08:11 | disposition home or self-care (01) ==
LOC: EMS 05:37
DX: R60.0 Localized edema (principal); I87.2 Venous insufficiency (chronic) (peripheral); F17.210 Nicotine dependence, cigarettes, uncomplicated; Z98.890 Other specified postprocedural states; Z79.899 Other long term (current) drug therapy; Z59.00 Homelessness unspecified; Z91.018 Allergy to other foods
CPT/HCPCS: 99283

== ENCOUNTER 2025-06-07 07:44 | Emergency (ER) | payer MEDICAID ==
[~2025-06-07] VITALS: Ht 188 cm; Wt 120.5 kg
[2025-06-07 07:45] VITALS: BP 136/79; PULSE 77; RESP 18; TEMP 98.2; O2SAT 99
== END 2025-06-07 09:19 | disposition home or self-care (01) ==
LOC: EMS 07:45
DX: M79.673 Pain in unspecified foot (principal); F17.210 Nicotine dependence, cigarettes, uncomplicated; Z76.5 Malingerer [conscious simulation]; Z59.00 Homelessness unspecified; Z79.899 Other long term (current) drug therapy; Z91.018 Allergy to other foods
CPT/HCPCS: 99282; Z7502

== ENCOUNTER 2025-06-08 12:03 | Emergency (ER) | payer MEDICAID ==
[~2025-06-08] VITALS: Ht 189.2 cm; Wt 121.8 kg
[2025-06-08 12:04] VITALS: BP 162/76; PULSE 81; RESP 16; TEMP 98.2; O2SAT 97
== END 2025-06-08 14:15 | disposition left against medical advice (07) ==
LOC: EMS 12:29
DX: M79.671 Pain in right foot (principal); M79.672 Pain in left foot; Z53.21 Procedure and treatment not carried out due to patient leaving prior to being seen by health care provider
CPT/HCPCS: 99281; Z7502

== ENCOUNTER 2025-06-17 05:12 | Emergency (ER) | payer MEDICAID ==
[~2025-06-17] VITALS: Ht 193 cm; Wt 120.0 kg
[2025-06-17 05:30] VITALS: TEMP 97.9
[2025-06-17 09:00] VITALS: BP 123/77; PULSE 71; RESP 18; O2SAT 99
== END 2025-06-17 09:46 | disposition home or self-care (01) ==
LOC: EMS 05:27
DX: M79.674 Pain in right toe(s) (principal); M79.675 Pain in left toe(s); G89.29 Other chronic pain; F17.210 Nicotine dependence, cigarettes, uncomplicated; Z98.890 Other specified postprocedural states; Z91.018 Allergy to other foods; Z59.00 Homelessness unspecified; Z79.899 Other long term (current) drug therapy
CPT/HCPCS: 99282; Z7502

== ENCOUNTER 2025-06-18 07:47 | Emergency (ER) | payer MEDICAID ==
[~2025-06-18] VITALS: Ht 190.5 cm; Wt 119.0 kg
[2025-06-18 08:02] VITALS: TEMP 97.9
[2025-06-18] MEDS: IBUPROFEN 600 MG TABLET PO ONE (09:21)
[2025-06-18 09:57] VITALS: BP 132/76; PULSE 61; RESP 18; O2SAT 98
== END 2025-06-18 10:02 | disposition home or self-care (01) ==
LOC: EMS 07:48
DX: G89.29 Other chronic pain (principal); M79.671 Pain in right foot; I87.2 Venous insufficiency (chronic) (peripheral); M79.672 Pain in left foot; F17.210 Nicotine dependence, cigarettes, uncomplicated; Z98.890 Other specified postprocedural states; Z59.00 Homelessness unspecified; Z79.899 Other long term (current) drug therapy; Z91.018 Allergy to other foods
CPT/HCPCS: 99283

== ENCOUNTER 2025-06-20 14:03 | Emergency (ER) | payer MEDICAID ==
[~2025-06-20] VITALS: Ht 190.5 cm; Wt 115.9 kg
[2025-06-20 14:07] VITALS: BP 120/66; PULSE 92; RESP 18; TEMP 98; O2SAT 97
[2025-06-20] MEDS: ACETAMINOPHEN 325 MG TABLET PO ONE (14:40)
[2025-06-20] MEDS: IBUPROFEN 600 MG TABLET PO ONE (14:40)
[2025-06-20 16:24] LABS: COVID AG,FIA SOURCE NASAL SWAB
[2025-06-20 16:47] LABS: SARS-COV2 (COVID) ANTIGEN,FIA Negative (Negative)
[2025-06-20 16:48] LABS: INFLUENZA TYPE A NEGATIVE FOR TYPE A (NEGATIVE); INFLUENZA TYPE B NEGATIVE FOR TYPE B (NEGATIVE)
== END 2025-06-20 16:25 | disposition home or self-care (01) ==
LOC: EMS 14:04
DX: M79.671 Pain in right foot (principal); M79.672 Pain in left foot; G89.29 Other chronic pain; R09.81 Nasal congestion; F17.210 Nicotine dependence, cigarettes, uncomplicated; Z98.890 Other specified postprocedural states; Z79.899 Other long term (current) drug therapy; Z59.00 Homelessness unspecified; Z20.822 Contact with and (suspected) exposure to COVID-19; Z91.010 Allergy to peanuts
CPT/HCPCS: 87804; 99283

== ENCOUNTER 2025-06-23 11:49 | Emergency (ER) | payer MEDICAID ==
[~2025-06-23] VITALS: Ht 182.9 cm; Wt 109.1 kg
[~2025-06-23 11:49] MED LIST changes: -CEPH-558 PO
[2025-06-23 11:59] VITALS: BP 127/68; PULSE 67; RESP 18; TEMP 98.2; O2SAT 99
== END 2025-06-23 12:25 | disposition left against medical advice (07) ==
LOC: EMS 11:49
DX: G89.29 Other chronic pain (principal); M79.673 Pain in unspecified foot; F17.210 Nicotine dependence, cigarettes, uncomplicated; Z98.890 Other specified postprocedural states; Z59.00 Homelessness unspecified; Z79.899 Other long term (current) drug therapy; Z91.018 Allergy to other foods
CPT/HCPCS: 99282; Z7502